=== PATIENT | male | born 1965 | race Caucasian/White ===

== ENCOUNTER 2019-04-19 08:15 | Emergency (ER) | payer MEDICAID, OTHER ==
[~2019-04-19] VITALS: Ht 182.9 cm; Wt 81.6 kg
--- NOTE | 2019-04-19 08:17 | Emergency Room Report ---
History of Present Illness General Chief Complaint: Lower Back Pain or Injury Source: Patient, EMS Present Illness HPI Patient is a 53-year-old male who presents for increased low back pain. He reports having recent injury where he fell out of a from a second story. He reports having landed on his feet. He reports being hospitalized at [facility]. He states he left the hospital AGAINST MEDICAL ADVICE 3 days prior to arrival.patient states that he subsequently stayed 24 hours in a psychiatric facility.Patient was noted to have been found outside of an apartment. Patient reportedly had been told that he had fracture to his low back as well as to his hip. Patient is poorly cooperative with history. Allergies: Coded Allergies: No Known Allergies (Unverified , 04/19/19) Patient History Past Medical History: see triage record Reviewed Nursing Documentation: PMH: Agreed; PSxH: Agreed Review of Systems All Other Systems: limited - by poor cooperation Physical Exam Vital Signs Date Time Temp Pulse Resp B/P (MAP) Pulse Ox O2 Delivery O2 Flow Rate FiO2 04/19/19 08:09 97.5 96 20 132/90 (104) 97 Room Air General Appearance: alert, GCS 15, mild distress Head: normocephalic ENT: hearing grossly normal Neck: full range of motion Respiratory: lungs clear Cardiovascular #1: normal peripheral pulses, edema - left ankle swelling Gastrointestinal: normal inspection, soft Musculoskeletal: swelling - left ankle swelling Neurologic: alert, oriented x3, responsive Psychiatric: depressed affect Skin: no rash Medical Decision Making Diagnostic Impression: Primary Impression: Lumbar compression fracture Additional Impressions: Greater trochanter fracture Alcohol abuse Metabolic acidosis ER Course Patient presented for increased low back pain and difficulty with ambulation. Patient was noted to have multiple prior fractures after a fall. Patient was patient was given IV fluids as well as pain medications. Noted to have persistent pain. Narcotics were not given due to patient's intoxication. Old records were obtained from [facility] which showed L1 compression fracture as well as a greater trochanteric fracture. Patient was noted to have significant soft tissue swelling to his left ankle. Patient will be transferred to [facility] for further management of metabolic acidosis. Patient was noted to have some prior psychiatric history and was noted to have some prior history of suicidal thoughts. Patient had reportedly been recently hospitalized at had a short stay at [facility]. I did contact [facility] who could not provide any records. Patient appears to be intoxicated with alcohol. He was given IV pain medications as well as IV fluids. Patient was discussed with Dr. Rubin patient will be transferred to [facility] and is currently stable for transfer. Labs Test 04/19/19 08:35 04/19/19 08:45 04/19/19 10:20 White Blood Count 5.6 K/UL (4.8-10.8) Red Blood Count 4.64 M/UL (4.70-6.10) Hemoglobin 15.0 G/DL (14.2-18.0) Hematocrit 45.2 % (42.0-52.0) Mean Corpuscular Volume 97 FL (80-99) Mean Corpuscular Hemoglobin 32.3 PG (27.0-31.0) Mean Corpuscular Hemoglobin Concent 33.2 G/DL (32.0-36.0) Red Cell Distribution Width 13.7 % (11.6-14.8) Platelet Count 219 K/UL (150-450) Mean Platelet Volume 4.8 FL (6.5-10.1) Neutrophils (%) (Auto) 59.8 % (45.0-75.0) Lymphocytes (%) (Auto) 27.8 % (20.0-45.0) Monocytes (%) (Auto) 8.2 % (1.0-10.0) Eosinophils (%) (Auto) 2.0 % (0.0-3.0) Basophils (%) (Auto) 2.2 % (0.0-2.0) Sodium Level 148 MMOL/L (136-145) Potassium Level 3.5 MMOL/L (3.5-5.1) Chloride Level 113 MMOL/L (98-107) Carbon Dioxide Level 27 MMOL/L (21-32) Anion Gap 9 mmol/L (5-15) Blood Urea Nitrogen 12 mg/dL (7-18) Creatinine 0.7 MG/DL (0.55-1.30) Estimat Glomerular Filtration Rate > 60 mL/min (>60) Glucose Level 82 MG/DL (74-106) Calcium Level 8.2 MG/DL (8.5-10.1) Total Bilirubin 0.3 MG/DL (0.2-1.0) Aspartate Amino Transf (AST/SGOT) 40 U/L (15-37) Alanine Aminotransferase (ALT/SGPT) 35 U/L (12-78) Alkaline Phosphatase 72 U/L (46-116) Total Creatine Kinase 134 U/L (26-308) Total Protein 6.7 G/DL (6.4-8.2) Albumin 3.3 G/DL (3.4-5.0) Globulin 3.4 g/dL Albumin/Globulin Ratio 1.0 (1.0-2.7) Lipase 104 U/L (73-393) Salicylates Level 3.6 ug/mL (2.8-20) Acetaminophen Level < 2 MCG/ML (10-30) Serum Alcohol 233 mg/dL Urine Opiates Screen Negative (NEGATIVE) Urine Barbiturates Screen Negative (NEGATIVE) Phencyclidine (PCP) Screen Negative (NEGATIVE) Urine Amphetamines Screen Negative (NEGATIVE) Urine Benzodiazepines Screen Negative (NEGATIVE) Urine Cocaine Screen Negative (NEGATIVE) Urine Marijuana (THC) Screen Negative (NEGATIVE) Lactic Acid Level 3.40 mmol/L (0.66-2.22) Last Vital Signs Date Time Temp Pulse Resp B/P (MAP) Pulse Ox O2 Delivery O2 Flow Rate FiO2 04/19/19 08:09 97.5 96 20 132/90 (104) 97 Room Air Status: unchanged Disposition: XFER SHT-TRM HOSP Condition: Serious Delmer Grimm MD Apr 19, 2019 08:17
--- NOTE | 2019-04-19 08:21 | NUR ---
ED Nurse Note: Pt BIB [facility] from home c/o back pain; pt states he fell last week.
[2019-04-19] MEDS ORDERED: Ketorolac 30mg Inj IV ONE (08:45)
[2019-04-19 08:49] VITALS: BP 132/90
[2019-04-19 08:50] LABS: BASOPHILS % (AUTO) 2.2 % (0.0-2.0); HEMATOCRIT 45.2 % (42.0-52.0); LYMPHOCYTES % (AUTO) 27.8 % (20.0-45.0); MEAN CORPUSCULAR VOLUME 97 FL (80-99); MONOCYTES % (AUTO) 8.2 % (1.0-10.0); NEUTROPHILS % (AUTO) 59.8 % (45.0-75.0); PLATELET COUNT 219 K/UL (150-450); RED BLOOD COUNT 4.64 M/UL (4.70-6.10); RED CELL DISTRIBUTION WIDTH 13.7 % (11.6-14.8); WHITE BLOOD COUNT 5.6 K/UL (4.8-10.8)
[2019-04-19 09:00] LABS: ANION GAP 9 mmol/L (5-15); BLOOD UREA NITROGEN 12 mg/dL (7-18); CALCIUM 8.2 MG/DL (8.5-10.1); CARBON DIOXIDE 27 MMOL/L (21-32); CHLORIDE 113 MMOL/L (98-107); CREATININE 0.7 MG/DL (0.55-1.30); POTASSIUM 3.5 MMOL/L (3.5-5.1); SODIUM 148 MMOL/L (136-145)
[2019-04-19 09:05] LABS: ALANINE AMINOTRANSFERASE 35 U/L (12-78); ALBUMIN 3.3 G/DL (3.4-5.0); ALKALINE PHOSPHATASE 72 U/L (46-116); ASPARTATE AMINO TRANSFERASE 40 U/L (15-37); BILIRUBIN,TOTAL 0.3 MG/DL (0.2-1.0); CREATINE KINASE 134 U/L (26-308)
--- NOTE | 2019-04-19 12:31 | NUR ---
ED Nurse Note: spoke with Sal at [facility], patient will be transferred to [facility]
[2019-04-19] MEDS ORDERED: Morphine Sulfate 4mg/ml Inj (IV USE ONLY) IVP ONE (13:00)
--- NOTE | 2019-04-19 14:46 | NUR ---
ED Nurse Note: Hannah from [facility] called, states patient called and notified them that he is having suicidal ideation. ERMD notified and made aware. Will continue to monitor pt.
[2019-04-19 15:51] VITALS: BP 150/88
[2019-04-19 15:53] VITALS: BP 150/98
--- NOTE | 2019-04-19 17:08 | NUR ---
ED Nurse Note: Attempted to give report to receiving nurse, unavailable at this time. Report given to Cinthya from [facility] ambulance at bedside for pecan picker.
[2019-04-19 17:16] VITALS: BP 164/85
--- NOTE | 2019-04-19 17:26 | NUR ---
ED Nurse Note: Report given to Linda from [facility]
== END 2019-04-19 17:16 | disposition short-term general hospital (02) ==
LOC: EDBD 08:15 → EMR 08:37
DX: S32.010A Wedge compression fracture of first lumbar vertebra, initial encounter for closed fracture (principal); S72.113A Displaced fracture of greater trochanter of unspecified femur, initial encounter for closed fracture; E87.2 Acidosis; F10.10 Alcohol abuse, uncomplicated; Y90.7 Blood alcohol level of 200-239 mg/100 ml; Y30.XXXA Falling, jumping or pushed from a high place, undetermined intent, initial encounter; Y92.9 Unspecified place or not applicable
CPT/HCPCS: 36415; 80053; 80307; 82550; 83605; 83690; 85025; 96361; 96374; 96375; 99284; G0480; J1885; J2270; S0028; 80329

== ENCOUNTER 2020-01-08 12:27 | Emergency (ER) | payer MEDICAID, OTHER ==
[~2020-01-08] VITALS: Ht 182.9 cm; Wt 86.2 kg
[2020-01-08 12:30] VITALS: BP 158/96
[2020-01-08] MEDS ORDERED: Tylenol #3 tab (300mg/30mg) ORAL ONE (13:00)
[2020-01-08] MEDS ORDERED: Ketorolac 30mg Inj IM ONE (13:00)
--- NOTE | 2020-01-08 13:41 | Emergency Room Report ---
History of Present Illness General Chief Complaint: Multiple Trauma/Fall Source: Patient Present Illness HPI 54-year-old male with no significant past medical history here complaining of 1 day of left upper thigh pain and left shoulder pain after a fall. The fall happened 1 day ago, patient noted on left thigh and complains of a 10 out of 10 left femoral pain. Is limping when walking. Also complains of a 3 out of 10 left shoulder pain however has full active motion. Has been taking Advil for symptom relief. Is on a daily dose of aspirin. Denies any head injury, loss of consciousness, dizziness. Denies any chest pain, shortness of breath, other associate symptoms. Denies any pain radiation, tingling and numbness. Allergies: Coded Allergies: No Known Allergies (Unverified , 04/19/19) COVID-19 Screening Contact w/high risk pt: No Recent Travel to affected area: No Experienced COVID-19 symptoms?: No Patient History Past Medical History: see triage record Past Surgical History: none Pertinent Family History: none Immunizations: UTD Reviewed Nursing Documentation: PMH: Agreed; PSxH: Agreed Nursing Documentation-PMH Past Medical History: No Stated History Review of Systems All Other Systems: negative except mentioned in HPI Physical Exam Vital Signs Date Time Temp Pulse Resp B/P (MAP) Pulse Ox O2 Delivery O2 Flow Rate FiO2 01/08/20 12:30 80 18 Room Air 01/08/20 12:30 98.2 158/96 99 Sp02 EP Interpretation: reviewed, normal General Appearance: no apparent distress, alert, GCS 15, non-toxic Head: normocephalic, atraumatic Eyes: bilateral eye normal inspection, bilateral eye PERRL ENT: hearing grossly normal, normal pharynx, no angioedema, normal voice Neck: full range of motion, supple/symm/no masses Respiratory: chest non-tender, lungs clear, normal breath sounds, no rhonchi, no wheezing, speaking full sentences Cardiovascular #1: regular rate, rhythm, no edema, no murmur Cardiovascular #2: 2+ radial (R), 2+ radial (L), 2+ femoral (R), 2+ femoral (L) , 2+ dorsalis pedis (R), 2+ dorsalis pedis (L) Rectal: deferred Musculoskeletal: back normal, no calf tenderness, no lower extremity edema, non -tender, swelling - Left femur Neurologic: alert, motor strength/tone normal, oriented x3, sensory intact, responsive, speech normal Psychiatric: judgement/insight normal, memory normal, mood/affect normal, no suicidal/homicidal ideation Skin: no rash Lymphatic: no adenopathy Medical Decision Making PA Attestation All my diagnosis and treatment plans were reviewed ad discussed with my supervising physician Dr. Wiggins Diagnostic Impression: Primary Impression: Pelvic contusion Additional Impressions: Shoulder sprain Thigh contusion ER Course 54-year-old male with no significant past medical history here complaining of 1 day of left upper thigh pain and left shoulder pain after a fall. The fall happened 1 day ago, patient noted on left thigh and complains of a 10 out of 10 left femoral pain. Is limping when walking. Also complains of a 3 out of 10 left shoulder pain however has full active motion. Has been taking Advil for symptom relief. Is on a daily dose of aspirin. Denies any head injury, loss of consciousness, dizziness. Denies any chest pain, shortness of breath, other associate symptoms. Denies any pain radiation, tingling and numbness. Ddx considered but are not limited to : Femoral neck fracture, femoral head fracture, femoral contusion, shoulder strain versus fracture versus strain Vital signs: are WNL, pt. is afebrile H&PE are most consistent with: Femoral contusion, shoulder sprain ORDERS: Hip and pelvis on the left side x-ray, left left knee x-ray, left shoulder x-ray, preop work-up due to high suspicion for fracture. Ibuprofen, Robaxin, lidocaine patch ED INTERVENTIONS: Tylenol 3, Toradol DISCHARGE: At this time pt. is stable for d/c to home. Will provide printed patient care instructions, and any necessary prescriptions. Care plan and follow up instructions have been discussed with the patient prior to discharge. Follow-up with primary doctor and orthopedic surgeon, take medication as directed, avoid strenuous physical activity, if worsening symptoms return to the emergency room Patient was evaluated in the context of the global COVID-19 pandemic, which necessitated consideration that the patient might be at risk for infection with the SARS-COV-2 virus that causes COVID-19. Institutional protocols and algorithms that pertain to the evaluation of patients at risk for COVID-19 are in a state of rapid change based on information relieved by multiple regulatory bodies including the CDC and the federal and state organizations. These policies and algorithms were followed during the patient's care in the ED. EKG Diagnostic Results Rate: normal Rhythm: NSR ST Segments: no acute changes Other Impression No acute ST changes Chest X-Ray Diagnostic Results Chest X-Ray Diagnostic Results : Chest X-Ray Ordered: Yes # of Views/Limited/Complete: 1 View Indication: Other EP Interpretation: Yes PA Xray: Interpretation reviewed, by supervising MD, and agrees with findings. Interpretation: no consolidation, no effusion, no pneumothorax Impression: No acute disease Electronically Signed by: Michael Robledo PA-C Other X-Ray Diagnostic Results Other X-Ray Diagnostic Results #1: X-Ray ordered: left femur # of Views/Limited Vs Complete: 2 View Indication: Pain EP Interpretation: Yes PA Xray: Interpretation reviewed, by supervising MD, and agrees with findings. Interpretation: no dislocation, no soft tissue swelling, no fractures Impression: No acute disease Electronically Signed by: Michael Robledo PA-C Other X-Ray Diagnostic Results #2: X-Ray ordered: left hip and pelvis # of Views/Limited Vs Complete: 3 View Indication: Pain EP Interpretation: Yes PA Xray: Interpretation reviewed, by supervising MD, and agrees with findings. Interpretation: no dislocation, no soft tissue swelling, no fractures Impression: No acute disease Electronically Signed by: Michael Robledo PA-C Other X-Ray Diagnostic Results #3: X-Ray ordered: left knee # of Views/Limited Vs Complete: 3 View Indication: Pain EP Interpretation: Yes PA Xray: Interpretation reviewed, by supervising MD, and agrees with findings. Interpretation: no dislocation, no soft tissue swelling, no fractures Impression: No acute disease Electronically Signed by: Michael Robledo PA-C Other X-Ray Diagnostic Results #4: X-Ray ordered: left shoulder # of Views/Limited Vs Complete: 3 View Indication: Pain EP Interpretation: Yes PA Xray: Interpretation reviewed, by supervising MD, and agrees with findings. Interpretation: no dislocation, no soft tissue swelling, no fractures Impression: No acute disease Electronically Signed by: Michael Robledo PA-C Last Vital Signs Date Time Temp Pulse Resp B/P (MAP) Pulse Ox O2 Delivery O2 Flow Rate FiO2 01/08/20 12:30 98.2 80 18 158/96 (116) 99 Room Air Disposition: HOME, SELF-CARE Condition: Stable Scripts Lidocaine Patch* (Lidoderm Patch*) 1 Each Adh..patch 1 PATCH TOPIC DAILY, #30 PATCH Patch(es) may remain in place for up to 12 hours in any 24-hour period. Prov: Michael Cm 01/08/20 Methocarbamol* (ROBAXIN-500*) 500 Mg Tablet 500 MG ORAL TID PRN for For Pain, #15 TAB 0 Refills Prov: Michael Cm 01/08/20 Ibuprofen* (MOTRIN*) 600 Mg Tablet 600 MG ORAL Q6H PRN for For Pain, #30 TAB 0 Refills Prov: Michael Cm 01/08/20 Referrals: NON PHYSICIAN (PCP) Patient Instructions: Contusion, [id number], Shoulder Sprain Additional Instructions: Follow-up with self pay specialist, take medication as directed, if worsening symptoms return to the emergency room. Michael Cm Jan 08, 2020 13:41
[2020-01-08 13:53] LABS: BASOPHILS % (AUTO) 1.7 % (0.0-2.0); EOSINOPHILS % (AUTO) 0.3 % (0.0-3.0); HEMATOCRIT 39.2 % (42.0-52.0); HEMOGLOBIN 13.8 G/DL (14.2-18.0); LYMPHOCYTES % (AUTO) 13.4 % (20.0-45.0); MEAN CORPUSCULAR VOLUME 90 FL (80-99); MONOCYTES % (AUTO) 8.2 % (1.0-10.0); NEUTROPHILS % (AUTO) 76.3 % (45.0-75.0); PLATELET COUNT 216 K/UL (150-450); RED BLOOD COUNT 4.36 M/UL (4.70-6.10); RED CELL DISTRIBUTION WIDTH 11.6 % (11.6-14.8); WHITE BLOOD COUNT 9.6 K/UL (4.8-10.8)
[2020-01-08 14:00] LABS: APPEARANCE,URINE CLOUDY; BILIRUBIN, URINE NEGATIVE (NEGATIVE); GLUCOSE, URINE (UA) NEGATIVE (NEGATIVE); KETONES,URINE NEGATIVE (NEGATIVE); LEUKOCYTE ESTERASE ,URINE NEGATIVE (NEGATIVE); NITRITE,URINE NEGATIVE (NEGATIVE); PH,URINE 8 (4.5-8.0); PROTEIN,URINE NEGATIVE (NEGATIVE); UROBILINOGEN,URINE NORMAL MG/DL (0.0-1.0)
[2020-01-08] MEDS ORDERED: ROBAXIN-500MG ORAL (14:03)
[2020-01-08] MEDS ORDERED: LIDODERM700 M1 TOPIC (14:03)
[2020-01-08] MEDS ORDERED: IBUPROFEN600 M1 ORAL (14:03)
[2020-01-08 14:05] LABS: INR 0.9 (0.9-1.1)
[2020-01-08 14:11] LABS: ANION GAP 17 mmol/L (5-15); BLOOD UREA NITROGEN 18 mg/dL (7-18); CALCIUM 8.6 MG/DL (8.5-10.1); CARBON DIOXIDE 21 MMOL/L (21-32); CHLORIDE 107 MMOL/L (98-107); CREATININE 0.7 MG/DL (0.55-1.30); POTASSIUM 4.1 MMOL/L (3.5-5.1); SODIUM 145 MMOL/L (136-145)
[2020-01-08 14:13] LABS: ALANINE AMINOTRANSFERASE 45 U/L (12-78); ALBUMIN 3.8 G/DL (3.4-5.0); ALBUMIN/GLOBULIN RATIO 1.2 (1.0-2.7); ALKALINE PHOSPHATASE 69 U/L (46-116); ASPARTATE AMINO TRANSFERASE 49 U/L (15-37); BILIRUBIN,TOTAL 0.6 MG/DL (0.2-1.0)
[2020-01-08 14:30] VITALS: BP 158/96
--- NOTE | 2020-01-08 14:31 | Diagnostic Imaging Report ---
Indication: Trauma, pain Technique: One view the pelvis, 2 views of the left hip Comparison: none Findings: Ossific density projects over the right femoral neck, may represent an area of heterotopic ossification. No acute fractures. No dislocations. The joint spaces are preserved. A surgical clip is seen in the left pelvis Impression: No acute bony trauma
--- NOTE | 2020-01-08 14:35 | Diagnostic Imaging Report ---
Indication: Trauma, chest pain Technique: One view of the chest Comparison: none Findings: The lungs and pleural spaces are clear. The heart size is normal. There is evidence of prior surgical repair of the left clavicle. Impression: No acute process
--- NOTE | 2020-01-08 14:35 | Diagnostic Imaging Report ---
Indication: Trauma, pain Technique: 3 views of the left shoulder Comparison: none Findings: Surgical plate and screws seen reducing old healed clavicular fracture. No acute fractures. No dislocations. The joint spaces are preserved . Impression: No acute bony trauma
[2020-01-08 15:04] LABS: COLOR,URINE YELLOW
--- NOTE | 2020-01-08 15:38 | Diagnostic Imaging Report ---
Indications: Trauma, pain Technique: Two views of the left femur Comparison: None Findings: No acute fractures. No dislocations. The joint spaces are preserved. There are minimal degenerative proliferative changes of the patella Impression: No acute bony trauma
--- NOTE | 2020-01-08 15:40 | Diagnostic Imaging Report ---
Indication: Pain, trauma Technique: 3 views of the left knee Comparison: None Findings: There is mild narrowing of the medial joint compartment. There are is one more medial osteophytes. There is a small lateral osteophyte as well as a patellofemoral osteophyte. No joint effusion. No acute fractures. No dislocations. Impression: Mild degenerative changes No acute bony trauma
== END 2020-01-08 14:30 | disposition home or self-care (01) ==
LOC: EMR 12:50
DX: S43.402A Unspecified sprain of left shoulder joint, initial encounter (principal); S30.0XXA Contusion of lower back and pelvis, initial encounter; S70.12XA Contusion of left thigh, initial encounter; W19.XXXA Unspecified fall, initial encounter; Y92.9 Unspecified place or not applicable; R07.9 Chest pain, unspecified; M79.605 Pain in left leg; M25.562 Pain in left knee
CPT/HCPCS: 36415; 71045; 73030; 73502; 73552; 73562; 80053; 81003; 85025; 85610; 85730; 86850; 86900; 86901; 93005; 96372; J1885; Z7502; 99284